=== PATIENT | female | born 1975 | race Caucasian/White ===

== ENCOUNTER 2021-02-12 08:03 | Day surgery (SDC) | payer OTHER, SELFPAY ==
[~2021-02-12] VITALS: Ht 170.2 cm; Wt 77.1 kg
[2021-02-12] MEDS ORDERED: fentaNYL citrate 0.05 MG/ML VIAL ONE (10:12)
[2021-02-12] MEDS ORDERED: diphenhydrAMINE 50 MG/ML VIAL ONE (10:12)
[2021-02-12] MEDS ORDERED: MIDAZOLAM 5 MG/5 ML VIAL ONE (10:13)
[2021-02-12] MEDS ORDERED: LIDOCAINE 2% 100 MG/5 ML UJET TP ONE ×3 (10:13→13:50)
[2021-02-12] MEDS ORDERED: fentaNYL citrate 0.05 MG/ML VIAL IVP ONE ×2 (10:35→13:50)
[2021-02-12] MEDS ORDERED: MIDAZOLAM 2 MG/2 ML VIAL IVP ONE (13:50)
== END 2021-02-12 11:50 | disposition home or self-care (01) ==
LOC: MMU 08:03 → MDS 08:03
PROVIDERS: ATTEND Internal Medicine Gastroenterology
DX: K62.5 Hemorrhage of anus and rectum (principal); K52.9 Noninfective gastroenteritis and colitis, unspecified; Z88.0 Allergy status to penicillin; M19.90 Unspecified osteoarthritis, unspecified site; G43.909 Migraine, unspecified, not intractable, without status migrainosus; Z80.0 Family history of malignant neoplasm of digestive organs; Z90.710 Acquired absence of both cervix and uterus; Z79.899 Other long term (current) drug therapy; Z20.822 Contact with and (suspected) exposure to COVID-19
CPT/HCPCS: 45380; 81025; 87426; J2250; J3010; J1200